=== PATIENT | male | born 1985 | race Caucasian/White ===

== ENCOUNTER 2020-07-09 19:01 | Emergency (ER) | payer MEDICAID ==
[~2020-07-09] VITALS: Ht 160 cm; Wt 64.4 kg
[2020-07-09 19:15] VITALS: BP 115/75; Ht 160 cm; Wt 64.4 kg
== END 2020-07-09 19:52 | disposition home or self-care (01) ==
LOC: ED 19:01
DX: S41.152A Open bite of left upper arm, initial encounter (principal); E11.9 Type 2 diabetes mellitus without complications; W50.3XXA Accidental bite by another person, initial encounter; Y93.89 Activity, other specified; Y92.89 Other specified places as the place of occurrence of the external cause; Y99.8 Other external cause status